=== PATIENT | female | born 1945 | race Caucasian/White ===

== ENCOUNTER 2019-11-10 16:04 | Emergency (ER) | payer OTHER ==
[~2019-11-10] VITALS: Ht 147.3 cm; Wt 52.2 kg
[~2019-11-10 16:04] MED LIST: ASPIRIN1 GM MC; CARTIA XT120 MG PO; CARTIA XT180 MG PO; CIPRO500 MG PO; HYZAAR 50-12.1 UDTAB PO; PENICILLAMINE(D-5 GM MC; SYMBICORT 80/10.2 GM IH
[2019-11-10] MEDS ORDERED: COZAAR25 MG (16:22)
[2019-11-10] MEDS ORDERED: PROLIA60 MG/1 ML (16:23)
[2019-11-10] MEDS ORDERED: DUREZOL5 ML (16:24)
[2019-11-10] MEDS ORDERED: QVAR REDIHALE10.6 GM (16:24)
[2019-11-10] MEDS ORDERED: NORFLEX100MG PO (16:55)
== END 2019-11-10 17:37 | disposition home or self-care (01) ==
LOC: ER 16:04
DX: M54.2 Cervicalgia (principal); M62.838 Other muscle spasm

== ENCOUNTER 2020-12-05 04:56 | Emergency (ER) | payer OTHER ==
[~2020-12-05] VITALS: Ht 157.5 cm; Wt 49.0 kg
[~2020-12-05 04:56] MED LIST changes: +COZAAR25 MG; +DUREZOL5 ML; +NORFLEX100MG PO; +PROLIA60 MG/1 ML; +QVAR REDIHALE10.6 GM
[2020-12-05] MEDS ORDERED: NORFLEX100MG PO (09:08)
== END 2020-12-05 09:36 | disposition home or self-care (01) ==
LOC: ER 04:56
DX: G44.209 Tension-type headache, unspecified, not intractable (principal)

== ENCOUNTER 2021-07-25 15:47 | Emergency (ER) | payer OTHER ==
[~2021-07-25] VITALS: Ht 147.3 cm; Wt 49.9 kg
[2021-07-25] MEDS ORDERED: DUI500 PO (16:24)
== END 2021-07-25 16:35 | disposition home or self-care (01) ==
LOC: ER 15:47
DX: K11.20 Sialoadenitis, unspecified (principal); Z86.79 Personal history of other diseases of the circulatory system; Z88.0 Allergy status to penicillin

== ENCOUNTER 2021-08-05 15:12 | Emergency (ER) | payer OTHER ==
[~2021-08-05] VITALS: Ht 129.5 cm; Wt 49.9 kg
[~2021-08-05 15:12] MED LIST changes: +DUI500 PO
== END 2021-08-05 18:31 | disposition home or self-care (01) ==
LOC: ER 15:12
DX: R07.81 Pleurodynia (principal); I10 Essential (primary) hypertension; Z88.8 Allergy status to other drugs, medicaments and biological substances

== ENCOUNTER 2021-09-04 09:34 | Outpatient (CLI) | payer OTHER | END 2021-09-04 09:36 | disposition home or self-care (01) | LOC: RAD 09:34 | PROVIDERS: ATTEND Internal Medicine | DX: J44.9 Chronic obstructive pulmonary disease, unspecified (principal); M17.0 Bilateral primary osteoarthritis of knee ==

== ENCOUNTER 2021-09-24 17:35 | Emergency (ER) | payer OTHER ==
[~2021-09-24] VITALS: Ht 152.4 cm; Wt 66.7 kg
[2021-09-24] MEDS ORDERED: HYDRODIURIL12.5 MG (17:59)
[2021-09-24] MEDS ORDERED: LASIX20 MG (17:59)
[2021-09-24] MEDS ORDERED: STRIBILD TABLE1 EACH (17:59)
[2021-09-24] MEDS ORDERED: QVAR REDIHALE10.6 G1 (17:59)
[2021-09-24] MEDS ORDERED: MECLIZINE HCL25 MG PO (21:00)
== END 2021-09-24 21:12 | disposition home or self-care (01) ==
LOC: ER 17:35
DX: R42 Dizziness and giddiness (principal); I10 Essential (primary) hypertension; G62.9 Polyneuropathy, unspecified; I87.2 Venous insufficiency (chronic) (peripheral); M81.0 Age-related osteoporosis without current pathological fracture; Z88.0 Allergy status to penicillin; Z88.6 Allergy status to analgesic agent